=== PATIENT | male | born 1965 | race American Indian/Alaskan Native ===

== ENCOUNTER 2019-02-26 08:51 | Emergency (ER) | payer SELFPAY ==
[2019-02-26 08:57] VITALS: BP 178/79
--- NOTE | 2019-02-26 09:11 | Emergency Department Report ---
Chief Complaint: Extremity Problem,Nontraumatic Stated Complaint: LFT ARM LOCKED/CANT BEND/MEDS Time Seen by Provider: 02/26/19 09:07 - HPI History of Present Illness: Patient is a 53-year-old [place] male who suffered injury to his left elbow approximately 2 months ago at work. Patient does not see a physician. Patient states he has limited range of motion to the elbow. There's been no trauma in the last week. Patient states the pain is minimal. Patient states the elbow does feel stiff. Patient has no other complaints at this time. - ROS Review of Systems: All other systems are reviewed and are negative - Exam Vital Signs: Vital Signs 02/26/19 08:55 Temperature 97.7 F Pulse Rate 67 Respiratory 18 Rate Blood Pressure 178/79 O2 Sat by Pulse 100 Oximetry Physical Exam: Patient's elbow shows full range of motion passively. He has decreased range of motion active bleeding at the left elbow. There is no erythema warmth swelling. He is able to pronate and supinate the left elbow although with some difficulty. MSE screening note: Focused history and physical exam performed. Due to findings the following was ordered: ED Medical Decision Making - Medical Decision Making Patient does not have a medical emergency at this time. He will be referred to orthopedics will likely scheduled the patient for physical therapy. ED [place] [facility] [place] Impression: Adhesive capsulitis of elbow Disposition: MED SCREENING EXAM-LEFT Is pt being admited?: No Does the pt Need Aspirin: No Condition: Stable Referrals: KERA BOYD MD [Staff Physician] - 3-5 Days Time of Disposition: 09:11
== END 2019-02-26 09:21 | disposition left against medical advice (07) ==
LOC: ED 08:51
DX: M77.8 Other enthesopathies, not elsewhere classified (principal)
CPT/HCPCS: 99281